=== PATIENT | female | born 1990 | race Caucasian/White ===

== ENCOUNTER 2018-03-23 11:46 | Emergency (ER) | payer OTHER ==
[~2018-03-23] VITALS: Ht 154.9 cm; Wt 56.7 kg
[2018-03-23 12:11] VITALS: BP 118/70
--- NOTE | 2018-03-23 12:20 | NUR ---
PT. bib friend with c/o staple removal to occiptal region. Site and jose dry/clean/intact. No redness or discharge noted. No pain at this time. RR Even and unlabored. Pt. able to speak in clear and complete sentences. Will continue to monitor. Safety precautions implemented. er made aware
--- NOTE | 2018-03-23 13:31 | NUR ---
ER MD MURCIA AT BEDSIDE , EVALUATING PATIENT AT THIS TIME.
[2018-03-23 13:45] VITALS: BP 120/68
--- NOTE | 2018-03-23 13:45 | NUR ---
Patient discharged with v/s stable. Written and verbal after care instructions given and explained. Patient verbalized understanding. Ambulatory with steady gait. All questions addressed prior to discharge. Advised to follow up with PMD.
== END 2018-03-23 13:45 | disposition home or self-care (01) ==
LOC: MED 11:46
DX: S01.01XD Laceration without foreign body of scalp, subsequent encounter (principal); X58.XXXD Exposure to other specified factors, subsequent encounter
CPT/HCPCS: 99283